=== PATIENT | male | born 1965 | race Two or more races ===

== ENCOUNTER 2016-12-13 12:32 | Emergency (ER) | payer MEDICAID ==
[~2016-12-13] VITALS: Ht 182.9 cm; Wt 93.0 kg
[2016-12-13 13:29] LABS: BASOPHILS # (AUTO) 0.1 /CMM (0.0-0.2); DIFF TOTAL % 100 %; EOSINOPHILS # (AUTO) 0.1 /CMM (0.0-0.7); EOSINOPHILS % (AUTO) 1.1 % (0.0-6.0); HEMATOCRIT 48 % (39-51); HEMOGLOBIN 16.5 g/dL (13.5-17.5); LYMPHOCYTES # (AUTO) 1.5 /CMM (0.8-4.8); LYMPHOCYTES % (AUTO) 20.7 % (20.0-44.0); MEAN CORPUSCULAR HEMOGLOBIN 32 PG (26.0-33.0); MEAN CORPUSCULAR HGB CONC 35 g/dl (31.0-36.0); MEAN CORPUSCULAR VOLUME 92 fL (80-96); MONOCYTES # (AUTO) 0.8 /CMM (0.1-1.30); MONOCYTES % (AUTO) 11.5 % (2.0-12.0); NEUTROPHILS # (AUTO) 4.8 /CMM (1.8-8.9); NEUTROPHILS % (AUTO) 65.7 % (43.0-81.0); PLATELET COUNT (AUTO) 150 /CMM (150-450); RED BLOOD CELL COUNT(AUTO) 5.17 MIL/uL (4.5-6.0); WHITE BLOOD COUNT (AUTO) 7.3 K/uL (4.3-11.0)
[2016-12-13] MEDS ORDERED: CLONIDINE HCL 0.1 MG TABLET PO ONE (13:30)
[2016-12-13] MEDS ORDERED: DIAZEPAM 10 MG TABLET PO ONE (13:30)
[2016-12-13] MEDS ORDERED: CLONIDINE HCL 0.1 MG TABLET ONE (13:31)
[2016-12-13] MEDS ORDERED: DIAZEPAM 10 MG TABLET ONE (13:32)
[2016-12-13 13:38] LABS: CALCIUM, SERUM 8.2 mg/dL (8.5-10.1); POTASSIUM 3.6 mmol/L (3.5-5.1)
[2016-12-13 13:43] LABS: INR 1.1 (0.87-1.13); PROTHROMBIN TIME 11.5 SECS (9.5-12.7)
[2016-12-13 13:44] LABS: ALBUMIN 3.6 g/dL (3.4-5.0); BILIRUBIN,DIRECT 0.3 mg/dL (0.0-0.2); INDIRECT BILIRUBIN 0.7 mg/dL (0.0-1.1); TOTAL PROTEIN, SERUM 7.5 g/dL (6.4-8.2)
[2016-12-13 15:04] VITALS: BP 155/99
== END 2016-12-13 15:07 | disposition home or self-care (01) ==
LOC: ER 12:34
DX: F10.239 Alcohol dependence with withdrawal, unspecified (principal); F41.9 Anxiety disorder, unspecified; K74.60 Unspecified cirrhosis of liver; R74.0 Nonspecific elevation of levels of transaminase and lactic acid dehydrogenase [LDH]; R03.0 Elevated blood-pressure reading, without diagnosis of hypertension; Z86.19 Personal history of other infectious and parasitic diseases; Z87.898 Personal history of other specified conditions
CPT/HCPCS: 36415; 80048-TC; 80076-TC; 85025-TC; 85730-TC; A4606; Z7610

== ENCOUNTER 2018-03-20 11:02 | Emergency (ER) | payer MEDICAID, OTHER ==
[~2018-03-20] VITALS: Ht 180.3 cm; Wt 90.7 kg
--- NOTE | 2018-03-20 11:10 | NUR ---
RUQ PAIN, MOSTLY AFTER INGESTION x 3 WEEKS, NAD NOTED, VSS, RESP EVEN AND UNLABORED, PT WAS PUT ON MONITOR, WAITING FOR MD BISHOP
[2018-03-20] MEDS ORDERED: KETOROLAC TROMETHAMINE INJ 30 MG/ML VIAL ONE (11:27)
[2018-03-20] MEDS ORDERED: ONDANSETRON HCL/PF 4 MG/2 ML VIAL ONE (11:27)
[2018-03-20] MEDS ORDERED: IV NS 0.9% 500 ML BAG IV ONE (11:30)
[2018-03-20] MEDS ORDERED: ONDANSETRON HCL/PF 4 MG/2 ML VIAL IVP ONE (11:30)
[2018-03-20] MEDS ORDERED: KETOROLAC TROMETHAMINE INJ 30 MG/ML VIAL IV ONE (11:30)
[2018-03-20 11:38] LABS: BASOPHILS # (AUTO) 0.1 /CMM (0.0-0.2); EOSINOPHILS % (AUTO) 4.3 % (0.0-6.0); HEMATOCRIT 49 % (39-51); HEMOGLOBIN 17.4 g/dL (13.5-17.5); LYMPHOCYTES # (AUTO) 2.6 /CMM (0.8-4.8); LYMPHOCYTES % (AUTO) 34.6 % (20.0-44.0); MEAN CORPUSCULAR HGB CONC 35 g/dl (31.0-36.0); MEAN CORPUSCULAR VOLUME 88 fL (80-96); MONOCYTES # (AUTO) 0.6 /CMM (0.1-1.30); MONOCYTES % (AUTO) 7.8 % (2.0-12.0); NEUTROPHILS % (AUTO) 52.3 % (43.0-81.0); PLATELET COUNT (AUTO) 127 /CMM (150-450); RDW COEFFICIENT OF VARIATION 11.8 (11.5-15.0); RED BLOOD CELL COUNT(AUTO) 5.61 MIL/uL (4.5-6.0); WHITE BLOOD COUNT (AUTO) 7.6 K/uL (4.3-11.0)
[2018-03-20 11:50] LABS: INR 1.01 (0.85-1.15)
[2018-03-20 11:52] LABS: CALCIUM, SERUM 9.3 mg/dL (8.5-10.1); CREATININE 0.9 mg/dL (0.6-1.3); POTASSIUM 4.3 mmol/L (3.5-5.1)
[2018-03-20 11:57] LABS: ALBUMIN 3.7 g/dL (3.4-5.0); BILIRUBIN,DIRECT 0.1 mg/dL (0.0-0.2); BILIRUBIN,TOTAL 0.7 mg/dL (0.2-1.0); TOTAL PROTEIN, SERUM 7.6 g/dL (6.4-8.2)
[2018-03-20 12:38] LABS: APPEARANCE,URINE Clear (CLEAR); BILIRUBIN,URINE Negative (NEGATIVE); BLOOD, URINE Negative Ery/uL (NEGATIVE); COLOR,URINE Dark (YELLOW); KETONES,URINE Negative (NEGATIVE); LEUKOCYTE ESTERASE ,URINE Negative (NEGATIVE); NITRITE, URINE Negative (NEGATIVE); PH,URINE 5.5 (5.0-8.0); PROTEIN,URINE Negative (NEGATIVE); UGLUCOSE Negative (NEGATIVE); UROBILINOGEN,URINE 0.2 EU/dL (0.2)
--- NOTE | 2018-03-20 14:54 | NUR ---
Patient discharged to home in stable condition. Written and verbal after care instructions given. Patient verbalizes understanding of instruction.IV removed. Catheter intact and site benign. Pressure and 4x4 applied to site. No bleeding noted.
[2018-03-20 14:57] VITALS: BP 138/90
== END 2018-03-20 14:58 | disposition home or self-care (01) ==
LOC: ER 11:03
DX: R10.11 Right upper quadrant pain (principal); K74.60 Unspecified cirrhosis of liver; I10 Essential (primary) hypertension; Z86.19 Personal history of other infectious and parasitic diseases; Z87.442 Personal history of urinary calculi
CPT/HCPCS: 36415; 80048-TC; 80076-TC; 81000-TC; 83690-TC; 85025-TC; 85730-TC; A4606; J1885; J2405; J7040; Z7610

== ENCOUNTER 2019-11-14 11:35 | Inpatient (IN) | payer OTHER ==
[~2019-11-14] VITALS: Ht 182.9 cm; Wt 97.1 kg
--- NOTE | 2019-11-14 11:39 | NUR ---
CAME IN FOR SOB X 4 HOURS. "I CANT STOP DRINKING ALCOHOL." , PER PATIENT, DRANK 2 SHOTS OF VODKA AT 0900. TO ER BED 4, HOOKED TO MONITOR, CHANGED TO HOSP GOWN, WARM BLAKET PROVIDED, PATIENT AOx4 , BREATHING EVEN AND UNLABORED. DR BARTH AT BEDSIDE
--- NOTE | 2019-11-14 11:43 | NUR ---
PATIENT NOTED A-FIB ON TRAINING DEVELOPER AT 152BPM
--- NOTE | 2019-11-14 12:09 | NUR ---
staging technician at bedside
[2019-11-14] MEDS ORDERED: DILTIAZEM HCL 25 MG IV ONE (12:15)
[2019-11-14 12:26] LABS: BASOPHILS % (AUTO) 0.5 % (0.0-2.0); EOSINOPHILS % (AUTO) 0.9 % (0.0-6.0); HEMATOCRIT 50 % (39-51); HEMOGLOBIN 16.7 g/dL (13.5-17.5); LYMPHOCYTES # (AUTO) 2.5 /CMM (0.8-4.8); LYMPHOCYTES % (AUTO) 25.5 % (20.0-44.0); MEAN CORPUSCULAR HGB CONC 34 g/dl (31.0-36.0); MEAN CORPUSCULAR VOLUME 90 fL (80-96); MONOCYTES # (AUTO) 0.8 /CMM (0.1-1.30); MONOCYTES % (AUTO) 7.8 % (2.0-12.0); NEUTROPHILS # (AUTO) 6.5 /CMM (1.8-8.9); NEUTROPHILS % (AUTO) 65.3 % (43.0-81.0); PLATELET COUNT (AUTO) 148 /CMM (150-450); RED BLOOD CELL COUNT(AUTO) 5.47 MIL/uL (4.5-6.0); WHITE BLOOD COUNT (AUTO) 9.9 K/uL (4.3-11.0)
[2019-11-14] MEDS ORDERED: LISI40TA4 PO (12:27)
[2019-11-14] MEDS ORDERED: DILTIAZEM HCL 25 MG IV IV ONE (12:30)
[2019-11-14 12:42] LABS: BILIRUBIN,DIRECT 0.2 mg/dL (0.0-0.2); BILIRUBIN,TOTAL 0.9 mg/dL (0.2-1.0); CREATININE 1.1 mg/dL (0.6-1.3); POTASSIUM 3.9 mmol/L (3.5-5.1); TOTAL PROTEIN, SERUM 7.6 g/dL (6.4-8.2)
[2019-11-14] MEDS ORDERED: Magnesium 1GM/D5W 100ML PREMIX 200 ML IV ONE (13:43)
[2019-11-14] MEDS ORDERED: Thiamine 100 MG/ML VIAL ONE (13:43)
[2019-11-14] MEDS ORDERED: Thiamine 100 MG in IV D5W 50 ML IV SCH (14:00)
[2019-11-14] MEDS ORDERED: Magnesium 1 GM/2 ML VIAL IV ONE (14:00)
[2019-11-14] MEDS ORDERED: AMIODARONE 150 MG/3 ML VIAL IV ONE ×2 (14:00→14:06)
[2019-11-14] MEDS ORDERED: IV NS 0.9% 1,000 ML IV ONE (14:00)
[2019-11-14] MEDS ORDERED: POTASSIUM CHLORIDE 20 MEQ TAB.PRT.SR PO ONE ×2 (14:00→14:06)
[2019-11-14] MEDS ORDERED: ASPIRIN 325 MG TABLET PO ONE (14:30)
[2019-11-14] MEDS ORDERED: AMIODARONE 150 MG in IV D5W 100 ML IV ONE (14:30)
[2019-11-14] MEDS ORDERED: AMIODARONE 900 MG in IV D5W 482 ML IV PRN (14:30)
[2019-11-14] MEDS ORDERED: IV NS 0.9% 1,000 ML IV PRN (15:22)
[2019-11-14] MEDS ORDERED: MAG HYDROX/AL HYDROX/SIMETH 30 ML UDC PO PRN (15:30)
[2019-11-14] MEDS ORDERED: ACETAMINOPHEN 325 MG TABLET PO PRN (15:30)
[2019-11-14] MEDS ORDERED: ONDANSETRON HCL/PF 4 MG/2 ML VIAL IVP PRN (15:30)
[2019-11-14] MEDS ORDERED: HYDROCODONE/APAP 5/325MG 1 EACH TABLET PO PRN (15:30)
[2019-11-14] MEDS ORDERED: MAGNESIUM HYDROXIDE 30 ML UDC PO PRN (15:30)
[2019-11-14] MEDS ORDERED: Z GUARD REMEDY 2 OZ OINT TP PRN (15:30)
[2019-11-14 16:00] VITALS: BP 163/115
--- NOTE | 2019-11-14 16:05 | NUR ---
GOT BED 101
--- NOTE | 2019-11-14 16:20 | NUR ---
REPORT GIVEN TO SOON RN OF [facility]
[2019-11-14] MEDS ORDERED: LORAZEPAM INJ 2 MG/ML VIAL ONE (16:26)
[2019-11-14] MEDS ORDERED: LORAZEPAM INJ 2 MG/ML VIAL IV ONE (16:30)
[2019-11-14 16:45] VITALS: BP 163/115
--- NOTE | 2019-11-14 16:45 | NUR ---
[facility] RN NOTES ADMITTED PATIENT FROM ER, DX A FIB WITH RVR, AO X 3, ABLE TO AMBULATE TO BED, ON ROOM AIR, NO SOB, NO DISTRESS, RESPIRATION UNLABORED, AFIB UNCONTROLLED HR 143 ON TELE MONITOR, DENIES CHEST PAIN OR DISCOMFORT, RT AC G 20 WITH AMIODARONE DRIP AT 1 MG/MIN ONGOING, SITE CLEAR. NO SKIN ISSUES. REGULAR DIET. UNIT ORIENTATION AND USE OF CALL LIGHT DONE VERBALIZED UNDERSTANDING. BED LOW LOCKED, INSTRUCTED TO CALL FOR ASSIST WHEN STANDING UP. WILL CONTINUE TO MONITOR.
[2019-11-14] MEDS ORDERED: ASPIRIN 325 MG TABLET ONE (17:08)
--- NOTE | 2019-11-14 17:12 | NUR ---
VERIFIED FROM DR NASH IF CORDARONE 900MG IN IV D5W 500ML 482ML AND CORDARONE 150MG IN IV D5W 100ML ARE DUPLICATE ORDERS. CANCELLED IN eMAR
[2019-11-14] MEDS: AMIODARONE 900 MG in IV D5W 482 ML IV PRN ×2 (17:21→18:14)
[2019-11-14] MEDS: IV 1/2NS 1000 ML 1,000 ML IV PRN (17:25)
--- NOTE | 2019-11-14 17:25 | NUR ---
[facility] RN NOTES BP 163/115. NOTIFIED DR. GUERRA EARLIER. HYDRALAZINE 25 MG ORAL GIVEN. THEN EVERY 8 HOURS PRN FOR SBP >160
[2019-11-14] MEDS ORDERED: hydrALAZINE HCL 25 MG TABLET PO PRN (17:30)
[2019-11-14 18:00] VITALS: BP 147/86
--- NOTE | 2019-11-14 18:00 | NUR ---
RN NOTES BP RECHECKED 147/86
[2019-11-14] MEDS: RIVAROXABAN 10 MG TABLET PO SCH (18:17)
[2019-11-14] MEDS ORDERED: Folic acid 1 MG in IV D5W 50 ML IV SCH (18:30)
--- NOTE | 2019-11-14 18:56 | NUR ---
RN NOTES ALL NEEDS MET AT THIS TIME. PATIENT RESTING. MD AWARE OF HIGH HEART RATE. XARELTO GIVEN EARLIER. FOLIC ACID IV NOT AVAILABLE OF THIS TIME. PER PHARMACY WILL BRING. WILL ENDORSE TO NEXT SHIFT FOR CARLA
--- NOTE | 2019-11-14 19:15 | NUR ---
[facility] RN NOTE RECEIVED PATIENT IN BED RESTING WITH HOB ELEVATED. WATCHING TV. A&O X4. BREATHING EVEN AND NON LABORED. NO SOB NOTED AT THIS TIME. IN NO APPARENT DISTRESS. ON IV AMIODARONE AND HYDRATION. CALL LIGHT IS WITHIN EASY REACH. WILL CONTINUE TO MONITOR.
[2019-11-14 20:00] VITALS: BP 152/91
[2019-11-14] MEDS: METOPROLOL TARTRATE 25 MG TABLET PO SCH (20:18)
[2019-11-14] MEDS: ZOLPIDEM TARTRATE 5 MG TABLET PO PRN (21:30)
--- NOTE | 2019-11-14 23:30 | NUR ---
[facility] RN NOTE PATIENT COMPLAINED OF ANXIETY AND SOB. DR. SAMS MADE AWARE OF PATIENT STATUS. RECEIVED NEW ORDER FOR ATIVAN 0.5 MG IV Q8H PRN. ORDERS NOTED AND CARRIED OUT. WILL CONTINUE TO MONITOR.
[2019-11-14] MEDS: LORAZEPAM INJ 2 MG/ML VIAL IV PRN (23:32)
[2019-11-15] VITALS (7 sets, daily range): BP systolic 105–153; BP diastolic 57–108
--- NOTE | 2019-11-15 00:15 | NUR ---
[facility] RN NOTE PATIENT STILL COMPLAINED OF DIFFICULTY BREATHING. CRACKLES HEARD UPON LUNG AUSCULTATION. O2 SAT IS 100% ON 2L 02 VIA NC. RESPIRATION IS [address] SAMS OF PATIENT'S COMPLAIN. RECEIVED NEW ORDERS FOR MORPHINE 2 MG IV Q4H PRN AND XOPENEX 0.63 MG NEB Q6H PRN. ORDERS NOTED AT CARRIED OUT.
[2019-11-15] MEDS: MORPHINE SULFATE INJ 2 MG/ML DISP.SYRIN IV PRN ×2 (00:24→13:50)
[2019-11-15] MEDS ORDERED: LEVALBUTEROL HCL NEB 1.25 MG/0.5 ML VIAL.NEB NEB PRN (00:30)
[2019-11-15] MEDS: IV 1/2NS 1000 ML 1,000 ML IV PRN (02:27)
--- NOTE | 2019-11-15 06:47 | NUR ---
RN [facility] CLOSING NOTE PATIENT IS IN BED RESTING WITH HOB ELEVATED AT THIS TIME. A&O X4. ABLE TO MAKE NEEDS KNOWN. IN NO APPARENT DISTRESS NOTED AT THIS TIME. MOTIVATED TO SELF CARE. PATIENT IS KEPT CLEAN, DRY, AND COMFORTABLE. DUE MEDS GIVEN AND TOLERATED WELL. ON AMIODARONE DRIP IV. CALL LIGHT IS WITHIN EASY REACH. WILL ENDORSE TO AM SHIFT RN.
[2019-11-15 06:56] LABS: BASOPHILS % (AUTO) 0.4 % (0.0-2.0); EOSINOPHILS % (AUTO) 1.7 % (0.0-6.0); HEMATOCRIT 49 % (39-51); HEMOGLOBIN 16.8 g/dL (13.5-17.5); LYMPHOCYTES # (AUTO) 2.1 /CMM (0.8-4.8); LYMPHOCYTES % (AUTO) 23.1 % (20.0-44.0); MEAN CORPUSCULAR HGB CONC 34 g/dl (31.0-36.0); MEAN CORPUSCULAR VOLUME 90 fL (80-96); MONOCYTES # (AUTO) 0.9 /CMM (0.1-1.30); MONOCYTES % (AUTO) 9.8 % (2.0-12.0); NEUTROPHILS # (AUTO) 5.8 /CMM (1.8-8.9); PLATELET COUNT (AUTO) 129 /CMM (150-450); RED BLOOD CELL COUNT(AUTO) 5.43 MIL/uL (4.5-6.0); WHITE BLOOD COUNT (AUTO) 8.9 K/uL (4.3-11.0)
--- NOTE | 2019-11-15 07:13 | NUR ---
[facility] RN OPENING NOTES RECEIVED PATIENT SITTING IN BED IN NO ACUTE SIGNS OF DISTRESS. A/O X4. ABLE TO MAKE NEEDS KNOWN, DENIES PAIN OR ANY DISCOMFORTS AT THIS TIME. ON ROOM AIR, BREATHING EVEN AND UNLABORED. TELEMONITORING SHOWS AFIB UNCONTROLLED WITH HR OF 100-109 NOTED, NO C/O CARDIAC DISTRESS VOICED AT THIS TIME. IV ACCESS ON RAC G#20 INTACT AND PATENT, IV AMIODARONE AND IVF OF 1/2 NS INFUSING ORDERED. BED IN LOWEST LOCKED POSITION WITH SR UP X2. CALL LIGHT IS WITHIN EASY REACH. WILL CONTINUE TO MONITOR.
[2019-11-15 07:37] LABS: ALANINE AMINOTRANSFERASE 71 U/L (12-78); ALBUMIN 3.5 g/dL (3.4-5.0); ALKALINE PHOSPHATASE 67 U/L (46-116); ASPARTATE AMINOTRANSFERASE 39 U/L (15-37); BILIRUBIN,TOTAL 1.7 mg/dL (0.2-1.0); CALCIUM, SERUM 8.7 mg/dL (8.5-10.1); CARBON DIOXIDE 27 mmol/L (21-32); CHLORIDE 102 mmol/L (98-107); CHOLESTEROL 201 mg/dL (<200); CREATININE 0.9 mg/dL (0.6-1.3); GLUCOSE 100 mg/dL (74-106); HDL CHOLESTEROL 65 mg/dL (40-60); LDL 124 mg/dL (0-99); MAGNESIUM 1.9 mg/dL (1.8-2.4); POTASSIUM 3.8 mmol/L (3.5-5.1); SODIUM SERUM 137 mmol/L (136-145); THYROID STIMULATING HORMONE < 0.007 uIU/mL (0.358-3.74); TRIGLYCERIDES 75 mg/dL (30-150); UREA NITROGEN, BLOOD 12 mg/dL (7-18)
[2019-11-15] MEDS: METOPROLOL TARTRATE 25 MG TABLET PO SCH ×5 (08:09→23:36)
--- NOTE | 2019-11-15 08:33 | NUR ---
RN NOTES PT SEEN AND EVALUATED BY DR FERGUSON. IVF OF 1/2 NS AND AMIODARONE IV D/C'D. PT DOWNGRADED TO TELE. FOR EKG AND ECHO TODAY AND BLOOD WORKS TOMORROW MORNING. WILL CONTINUE TO MONITOR P ACCORDINGLY.
--- NOTE | 2019-11-15 09:18 | NUR ---
ONLY HALF DOSE OF METOPROLOL WAS GIVEN D/T MD CHANGING DOSE AND 25MG ALREADY BEING ADMINISTERED. 25MG GIVEN TO FOLLOW MD ORDER FOR A TOTAL OF 50MG OF METOPROLOL FOR 0900.
[2019-11-15] MEDS: LORAZEPAM INJ 2 MG/ML VIAL IV PRN (09:28)
--- NOTE | 2019-11-15 09:29 | NUR ---
RN NOTES PT NOTED ANXIOUS, PRN ATIVAN 0.5MG/0.25ML ADMINISTERED IVP AT 0928. WILL CONTINUE TO MONITOR
--- NOTE | 2019-11-15 10:26 | NUR ---
INFORMED DR STILL REGARDING RESULTS FOR EKG AND ECHO. AWARE. NNO AT THIS TIME.
[2019-11-15] MEDS: CHLORDIAZEPOXIDE HCL 25 MG CAPSULE PO PRN ×2 (12:20→20:45)
--- NOTE | 2019-11-15 12:24 | NUR ---
dangling, signif other with him, alert, oriented, appropriate. did not offer any complaint of discomfort, no withdrawal signed noted. LIBRIUM 25mg po initiated
[2019-11-15] MEDS: THIAMINE HCL 100 MG TABLET PO SCH (13:49)
[2019-11-15] MEDS: FOLIC ACID 1 MG TABLET PO SCH (13:49)
--- NOTE | 2019-11-15 14:12 | NUR ---
complained of " heart discomfort, bp at this time 155/108, hr 92, afib. mso4 , 2mg ivp given per patient's request
[2019-11-15] MEDS ORDERED: Folic acid 1 MG in IV D5W 50 ML IV SCH (15:00)
[2019-11-15] MEDS ORDERED: Thiamine 100 MG in IV D5W 50 ML IV SCH (15:00)
[2019-11-15] MEDS: RIVAROXABAN 10 MG TABLET PO SCH (16:46)
--- NOTE | 2019-11-15 19:20 | NUR ---
TELE/RN OPENING NOTES: RECEIVED PATIENT IN BED, SITTING UP, NO SOB NOTED, NO S/S OF ACUTE DISTRESS, NO COMPLAINS OF PAIN/DISCOMFORT AT THIS TIME. A/O X4. FAMILY AT BEDSIDE. ABLE TO MAKE NEEDS KNOWN, ON ROOM AIR, BREATHING EVEN AND UNLABORED. ON TELEMONITORING WITH READING OF A-FIB UNCONTROLLED WITH HR OF 110S NOTED, NO C/O CARDIAC DISTRESS VOICED AT THIS TIME. IV ACCESS ON RAC G#20 INTACT AND PATENT. BED IN LOWEST LOCKED POSITION WITH SR UP X2. CALL LIGHT IS WITHIN EASY REACH. WILL CONTINUE TO MONITOR.
--- NOTE | 2019-11-15 20:47 | NUR ---
TELE/RN NOTES: PATIENT IS HAVING ANXIETY AT THIS TIME. BP:129/95. HR:112. SATURATING WELL ON ROOM AIR. ADMINISTERED 25MG OF LIBRIUM PO. TOLERATED WELL. WILL CONTINUE TO MONITOR ACCORDINGLY.
[2019-11-16] VITALS: BP 109/62
--- NOTE | 2019-11-16 | NUR ---
TELE/RN NOTES: PATIENT BLOOD PRESSURE 109/62. HR 105. HELD LOPRESSOR 50 MG 2 TAB PO TO PREVENT BP FROM DECREASING. PATIENT IS STABLE. NO CHEST PAIN REPORTED. NO COMPLAINS OF PAIN, NO SOB OR ACUTE DISTRESS NOTED. WILL CONTINUE TO MONITOR.
[2019-11-16 04:00] VITALS: BP 125/97
[2019-11-16 05:43] LABS: BASOPHILS # (AUTO) 0.1 /CMM (0.0-0.2); BASOPHILS % (AUTO) 0.7 % (0.0-2.0); HEMATOCRIT 48 % (39-51); HEMOGLOBIN 16.3 g/dL (13.5-17.5); LYMPHOCYTES % (AUTO) 27.4 % (20.0-44.0); MEAN CORPUSCULAR HGB CONC 34 g/dl (31.0-36.0); MEAN CORPUSCULAR VOLUME 90 fL (80-96); MONOCYTES # (AUTO) 0.6 /CMM (0.1-1.30); MONOCYTES % (AUTO) 8.5 % (2.0-12.0); NEUTROPHILS # (AUTO) 4.4 /CMM (1.8-8.9); NEUTROPHILS % (AUTO) 60.4 % (43.0-81.0); PLATELET COUNT (AUTO) 109 /CMM (150-450); RED BLOOD CELL COUNT(AUTO) 5.28 MIL/uL (4.5-6.0); WHITE BLOOD COUNT (AUTO) 7.3 K/uL (4.3-11.0)
[2019-11-16] MEDS: METOPROLOL TARTRATE 25 MG TABLET PO SCH ×3 (05:53→17:10)
[2019-11-16 06:23] LABS: ALBUMIN 3.2 g/dL (3.4-5.0); BILIRUBIN,TOTAL 1.9 mg/dL (0.2-1.0); CALCIUM, SERUM 8.9 mg/dL (8.5-10.1); MAGNESIUM 1.8 mg/dL (1.8-2.4); PHOSPHORUS 2.9 mg/dL (2.5-4.9); POTASSIUM 3.9 mmol/L (3.5-5.1); TOTAL PROTEIN, SERUM 6.7 g/dL (6.4-8.2)
--- NOTE | 2019-11-16 06:24 | NUR ---
TELE/RN CLOSING NOTES: PATIENT SLEEPING IN BED, NO SOB NOTED, NO S/S OF ACUTE DISTRESS, NO COMPLAINS OF PAIN/DISCOMFORT AT THIS TIME. REMAINS A/O X4. FAMILY MEMBER AT BEDSIDE. ABLE TO MAKE NEEDS KNOWN, ON ROOM AIR, BREATHING EVEN AND UNLABORED. ON TELEMONITORING WITH READING OF A-FIB UNCONTROLLED WITH HR OF 100S, IV ACCESS ON RAC G#20 INTACT AND PATENT. BED IN LOWEST LOCKED POSITION WITH SR UP X2. CALL LIGHT IS WITHIN EASY REACH. WILL ENDORSE TO DAYSHIFT RN FOR CARLA.
[2019-11-16] MEDS ORDERED: ALBUTEROL FS 2.5 MG/3 ML VIAL.NEB NEB PRN (07:30)
--- NOTE | 2019-11-16 07:51 | NUR ---
LOADER OPERATOR/GROUND LEADER NOTES PATIENT IN BED AWAKE, A/OX 4 , AT BED SIDE. DENIES ANY PAIN, NO SOB OR DISCOMFORT NOTED AT THIS TIME. CALL LIGHT WITHIN REACH, BED AT THE LOWEST POSITION LOCKED, WILL CONTINUE TO MONITOR PATIENT.
[2019-11-16 08:00] VITALS: BP 130/91
[2019-11-16] MEDS: THIAMINE HCL 100 MG TABLET PO SCH (08:32)
[2019-11-16] MEDS: FOLIC ACID 1 MG TABLET PO SCH (08:32)
[2019-11-16 12:00] VITALS: BP 121/85
[2019-11-16] MEDS: DILTIAZEM HCL CD 240 MG PO SCH (12:39)
[2019-11-16] MEDS: METHIMAZOLE (5MG) 5 MG TABLET PO SCH (13:35)
[2019-11-16 16:00] VITALS: BP 121/86
[2019-11-16] MEDS: RIVAROXABAN 10 MG TABLET PO SCH (17:06)
--- NOTE | 2019-11-16 19:05 | NUR ---
AIR OPERATIONS MANAGER NOTES PATIENT IN BED A/OX 4 SITTING ON CHAIR. NO SOB OR DISCOMFORT NOTED AT THIS TIME. IV SITE PATENT. PATIENT IS DISCHARGED, BUT PER DR BROWN PATIENT WILL REMAIN AT HOSPITAL UNTIL HE RECEIVES HI WAIST LIFE JACKET. LORELEI RAILROAD WATCHMAN AWARE. ALL NEEDS ATTENDED, MEDICATIONS ADMINISTRATED, CALL LIGHT WITHIN REACH, BED AT THE LOWEST POSITION LOCKED, ENDORSED TO MOTORCYCLE RACER NURSE FOR CARLA.
[2019-11-16] MEDS: MORPHINE SULFATE INJ 2 MG/ML DISP.SYRIN IV PRN (19:48)
--- NOTE | 2019-11-16 19:54 | NUR ---
VENETIAN BLIND CLEANER AND REPAIRER OPENING NOTES: RECEIVED PT AWAKE IN SITTING UP IN CHAIR NEXT TO BED. PT ON 2L/MIN NC SATING WELL AT 95%. A&OX4 AND AMBULATORY. ON TELE MONITOR SHOWING A-FIB. NO ACUTE RESPIRATORY DISTRESS NOTED AT THIS TIME. LUNG SOUNDS CLEAR THROUGHOUT. HAS IV ON RIGHT AC #20, FLUSHED, PATENT AND CLEAN. PT STATED HE HAS GENERALIZED PAIN 8/10. ADMINISTERED IV MORPHINE PRESCRIBED. PT AWAITING LIFE WAIST PRIOR TO DC. SAFETY MEASURES IN PLACE. CALL LIGHT WITHIN REACH. WILL CONTINUE TO MONITOR.
[2019-11-16 20:00] VITALS: BP 117/71
[2019-11-16] MEDS: ZOLPIDEM TARTRATE 5 MG TABLET PO PRN (21:58)
[2019-11-17] VITALS: BP 110/67
[2019-11-17 04:00] VITALS: BP_SYST 118; BP_SYST 133; BP_DIAS 75; BP_DIAS 79
[2019-11-17] MEDS: METOPROLOL TARTRATE 25 MG TABLET PO SCH ×4 (05:48→17:24)
--- NOTE | 2019-11-17 06:41 | NUR ---
ASSISTANT SIGNAL MAINTAINER CLOSING NOTES: PT SLEEPING IN BED, NO SOB OR ACUTE DISTRESS NOTED. ON 2L/MIN NC FOR SUPPLEMENTAL O2 BREATHING EVEN AND UNLABORED. NO COMPLAINTS OF PAIN/DISCOMFORT. PT REMAINS A&OX4. ABLE TO MAKE NEEDS KNOWN. ON TELE MONITOR SHOWING A-FIB. HAS IV SITE ON RIGHT AC #20, FLUSHED, PATENT AND INTACT. BED IN LOWEST POSITION, LOCKED WITH SIDE RAILS X2 UP AND CALL LIGHT WITHIN REACH. WILL ENDORSE TO DAYSHIFT RN FOR CARLA.
--- NOTE | 2019-11-17 07:10 | NUR ---
RN OPENING NOTES PT IS ASLEEP CURRENTLY IN BED. BED IS LOCKED AND IN LOWEST POSITION WITH CALL LIGHT IN REACH. PT IS ON TELE MONITOR CURRENTLY A-FIB HR 96. REPORT RECEIVED FROM ENTRY LEVEL SALES REPRESENTATIVE RN. WILL CONTINUE TO MONITOR.
[2019-11-17 08:00] VITALS: BP 124/71
[2019-11-17] MEDS: DILTIAZEM HCL CD 240 MG PO SCH (09:30)
[2019-11-17] MEDS: THIAMINE HCL 100 MG TABLET PO SCH (09:30)
[2019-11-17] MEDS: FOLIC ACID 1 MG TABLET PO SCH (09:30)
[2019-11-17] MEDS: METHIMAZOLE (5MG) 5 MG TABLET PO SCH (09:30)
[2019-11-17 12:00] VITALS: BP 126/82
[2019-11-17 16:00] VITALS: BP 119/71
[2019-11-17] MEDS ORDERED: RIVA10TA PO (17:05)
[2019-11-17] MEDS ORDERED: METO25TA20 PO (17:05)
[2019-11-17] MEDS ORDERED: METH5TAB70 PO (17:05)
[2019-11-17] MEDS ORDERED: DILT240C88 PO (17:05)
[2019-11-17] MEDS: RIVAROXABAN 10 MG TABLET PO SCH (17:23)
[2019-11-17 17:24] VITALS: BP 119/71
--- NOTE | 2019-11-17 18:45 | NUR ---
ALFRED BEAULIEU DELIVERED AND YVONNE HAT BRUSHER MACHINE GOING OVER PT EDUCATION WITH PT.
--- NOTE | 2019-11-17 19:32 | NUR ---
RN CLOSING NOTES PT EXITCARE GIVEN TO PT. PT APPOINTMENT TIME GIVEN TO PT WITH EDUCATION MATERIAL. PT VERBALIZED UNDERSTANDING. IV REMOVED FROM AC. BELONGINGS LIST SIGNED. LIFEVEST IS ON THE PATIENT. PT LEFT IN PRIVATE CAR WITH .
--- NOTE | 2019-11-17 19:41 | NUR ---
RN D/C NOTES PT EXITCARE GIVEN TO PT. PT APPOINTMENT TIME GIVEN TO PT WITH EDUCATION MATERIAL. PT VERBALIZED UNDERSTANDING. IV REMOVED FROM AC. BELONGINGS LIST SIGNED.PT GOT DRESSED IN HIS CLOTHES AND TELEMETRY BOX REMOVED. LIFEVEST IS ON THE PATIENT. PT LEFT IN PRIVATE CAR WITH .
== END 2019-11-17 19:51 | disposition home or self-care (01) | DRG 194 ==
LOC: ER 11:37 → TELE-TD 16:27 → TELE1 11-15 09:41
PROVIDERS: ADMIT Internal Medicine; ATTEND Hospitalist
DX: I11.0 Hypertensive heart disease with heart failure (principal); I21.A1 Myocardial infarction type 2; D68.59 Other primary thrombophilia; F10.229 Alcohol dependence with intoxication, unspecified; I50.21 Acute systolic (congestive) heart failure; I48.91 Unspecified atrial fibrillation; I42.9 Cardiomyopathy, unspecified; T51.0X1A Toxic effect of ethanol, accidental (unintentional), initial encounter; Y90.6 Blood alcohol level of 120-199 mg/100 ml; K70.30 Alcoholic cirrhosis of liver without ascites; Z86.19 Personal history of other infectious and parasitic diseases; E66.9 Obesity, unspecified; Z68.27 Body mass index [BMI] 27.0-27.9, adult; E05.90 Thyrotoxicosis, unspecified without thyrotoxic crisis or storm; Z91.14 Patient's other noncompliance with medication regimen; I34.0 Nonrheumatic mitral (valve) insufficiency; Z87.891 Personal history of nicotine dependence; I25.2 Old myocardial infarction
CPT/HCPCS: 36415; 71045-TC; 80048-TC; 80053-TC; 80061-TC; 80076-TC; 80305; 83735-TC; 83880; 84100-TC; 84439-TC; 84443-TC; 84484-TC; 85025-TC; 85730-TC; 87081-TC; 93307-TC; G0378; G0480; J0282; J2060; J2270; J3411; J3475; J3490; J7030; J7060

== ENCOUNTER 2020-02-18 10:34 | Inpatient (IN) | payer OTHER ==
[~2020-02-18] VITALS: Ht 218.4 cm; Wt 90.7 kg
[2020-02-18] VITALS: BP 166/112
[~2020-02-18 10:34] MED LIST: DILT240C88 PO; METH5TAB70 PO; METO25TA20 PO; RIVA10TA PO
--- NOTE | 2020-02-18 11:03 | NUR ---
DR REDDY AT BEDSIDE FOR EVAL.
[2020-02-18] MEDS ORDERED: DILTIAZEM HCL 25 MG IV ONE (11:22)
[2020-02-18 11:24] LABS: BASOPHILS # (AUTO) 0.1 /CMM (0.0-0.2); BASOPHILS % (AUTO) 0.8 % (0.0-2.0); EOSINOPHILS % (AUTO) 0.7 % (0.0-6.0); HEMATOCRIT 51 % (39-51); HEMOGLOBIN 17.7 g/dL (13.5-17.5); LYMPHOCYTES # (AUTO) 2.6 /CMM (0.8-4.8); LYMPHOCYTES % (AUTO) 24.5 % (20.0-44.0); MEAN CORPUSCULAR HGB CONC 35 g/dl (31.0-36.0); MEAN CORPUSCULAR VOLUME 93 fL (80-96); MONOCYTES # (AUTO) 1.1 /CMM (0.1-1.30); MONOCYTES % (AUTO) 10.2 % (2.0-12.0); NEUTROPHILS # (AUTO) 6.6 /CMM (1.8-8.9); NEUTROPHILS % (AUTO) 63.8 % (43.0-81.0); PLATELET COUNT (AUTO) 189 /CMM (150-450); RED BLOOD CELL COUNT(AUTO) 5.54 MIL/uL (4.5-6.0); WHITE BLOOD COUNT (AUTO) 10.4 K/uL (4.3-11.0)
[2020-02-18] MEDS ORDERED: DILTIAZEM HCL 25 MG IV IV ONE (11:30)
[2020-02-18 11:36] LABS: CALCIUM, SERUM 8.5 mg/dL (8.5-10.1); CREATININE 1.2 mg/dL (0.6-1.3); POTASSIUM 3.6 mmol/L (3.5-5.1)
[2020-02-18 11:49] LABS: ALBUMIN 4.1 g/dL (3.4-5.0); BILIRUBIN,DIRECT 0.4 mg/dL (0.0-0.2); BILIRUBIN,TOTAL 1.3 mg/dL (0.2-1.0); TOTAL PROTEIN, SERUM 7.8 g/dL (6.4-8.2)
[2020-02-18] MEDS ORDERED: RIVA10TA PO (12:24)
[2020-02-18] MEDS ORDERED: DILT-3 PO (12:24)
[2020-02-18] MEDS ORDERED: METH5TAB6 PO (12:24)
[2020-02-18] MEDS ORDERED: LOSA25TA27 PO (12:24)
[2020-02-18] MEDS ORDERED: SPIR25TA6 PO (12:24)
--- NOTE | 2020-02-18 13:24 | NUR ---
ROOM ASSIGNMENT 112-2
[2020-02-18] MEDS ORDERED: DILTIAZEM HCL IV 125 MG in IV D5W 100 ML IV ONE (13:30)
[2020-02-18] MEDS ORDERED: FUROSEMIDE 20 MG/2 ML VIAL IV ONE (13:30)
--- NOTE | 2020-02-18 13:45 | NUR ---
PT STILL C/O SOB. DR REDDY AWARE.
[2020-02-18] MEDS ORDERED: FUROSEMIDE 20 MG/2 ML VIAL ONE (13:48)
--- NOTE | 2020-02-18 13:52 | NUR ---
LASIX 40MG IVP GIVEN PER ERMD ORDER. SEE EMAR.
--- NOTE | 2020-02-18 14:36 | NUR ---
REPORT GIVEN TO DOMINIQUE ANTONIO. .PT AWAITING TRANSFER TO FLOOR.
[2020-02-18] MEDS ORDERED: ACETAMINOPHEN 325 MG TABLET PO PRN (15:30)
[2020-02-18] MEDS ORDERED: Z GUARD REMEDY 2 OZ OINT TP PRN (15:30)
[2020-02-18] MEDS ORDERED: HYDROCODONE/APAP 5/325MG 1 EACH TABLET PO PRN (15:30)
[2020-02-18] MEDS ORDERED: ONDANSETRON HCL/PF 4 MG/2 ML VIAL IVP PRN (15:30)
[2020-02-18] MEDS ORDERED: MAGNESIUM HYDROXIDE 30 ML UDC PO PRN (15:30)
[2020-02-18] MEDS ORDERED: DILTIAZEM HCL IV 125 MG in IV NS 0.9% 100 ML IV PRN ×2 (15:30→17:00)
[2020-02-18] MEDS ORDERED: MAG HYDROX/AL HYDROX/SIMETH 30 ML UDC PO PRN (15:30)
[2020-02-18 16:00] VITALS: BP 130/94
--- NOTE | 2020-02-18 16:05 | NUR ---
CORRESPONDENCE ANALYST NOTES MICAELA TECHNICAL WRITING LEAD/MGR ECHO WAS AT BED SIDE. ECHO CANCELLED. CONTACTED DR ROLDAN AND NOTIFY THAT DR FERGUSON WANTS THE ECHO EVERY 6 MONTHS AND PT HAD ONE ON 11/15/2019. PER DR ROLDAN CANCEL ECHO.
--- NOTE | 2020-02-18 16:26 | NUR ---
HEADING MATCHER AND ASSEMBLER NOTES RECEIVED PATIENT FROM ER, A/OX4 UNDERSTANDS [place]ET[place]. ON ROOM AIR VITALS 98.3 HR 86 RR 18 O298% BP 130/94. ABLE TO AMBULATE BY HIMSELF. NO SOB OR DISCOMFORT NOTED AT THIS TIME. BELONGINGS CHECKED AND SIGNED WITH PATIENT. WILL CONTINUE TO MONITOR THE PATIENT.
--- NOTE | 2020-02-18 16:35 | NUR ---
RAILROAD DINING CAR STEWARDESS NOTES PER DR ROLDAN CHANGE THE CARDIZEM DOSE FROM 5 MG TO 8 MG. Addendum: 02/18/20 at 1640 by RICH IBANEZ RN NO TITRATION ON CARDIZEM.
[2020-02-18] MEDS ORDERED: RIVAROXABAN 10 MG TABLET PO SCH (17:00)
[2020-02-18 17:37] VITALS: BP 130/94
[2020-02-18 20:00] VITALS: BP 166/112
[2020-02-18] MEDS ORDERED: ZOLPIDEM TARTRATE 10 MG TABLET PO PRN (21:00)
[2020-02-19] VITALS: BP 143/89
[2020-02-19 04:00] VITALS: BP 140/78
--- NOTE | 2020-02-19 06:33 | NUR ---
SUPERVISOR ABATTOIR CLOSING NOTES: PATIENT IS RESTING IN BED, A/O X4. AMBULATORY. NO COMPLAIN OF PAIN. NOT IN RESPIRATORY DISTRESS. RESTED THROUGHOUT THE NIGHT. CALL LIGHT WITHIN REACH. BED IN LOWEST AND LOCKED POSITION. STILL ON CARDIZEM DRIP AT 8MG PER HOUR.
[2020-02-19 06:54] LABS: BASOPHILS # (AUTO) 0.1 /CMM (0.0-0.2); BASOPHILS % (AUTO) 0.8 % (0.0-2.0); EOSINOPHILS % (AUTO) 3.4 % (0.0-6.0); HEMATOCRIT 53 % (39-51); HEMOGLOBIN 18.4 g/dL (13.5-17.5); LYMPHOCYTES % (AUTO) 31.8 % (20.0-44.0); MEAN CORPUSCULAR HGB CONC 35 g/dl (31.0-36.0); MEAN CORPUSCULAR VOLUME 92 fL (80-96); MONOCYTES # (AUTO) 1.2 /CMM (0.1-1.30); MONOCYTES % (AUTO) 12.3 % (2.0-12.0); NEUTROPHILS # (AUTO) 4.9 /CMM (1.8-8.9); NEUTROPHILS % (AUTO) 51.7 % (43.0-81.0); PLATELET COUNT (AUTO) 159 /CMM (150-450); WHITE BLOOD COUNT (AUTO) 9.4 K/uL (4.3-11.0)
[2020-02-19 07:14] LABS: CALCIUM, SERUM 8.7 mg/dL (8.5-10.1); CREATININE 1.3 mg/dL (0.6-1.3); MAGNESIUM 1.8 mg/dL (1.8-2.4); PHOSPHORUS 3.5 mg/dL (2.5-4.9); POTASSIUM 3.5 mmol/L (3.5-5.1)
--- NOTE | 2020-02-19 07:30 | NUR ---
RN NOTE RECEIVED PATIENT FROM PM NURSE, PATIENT IS CURRENTLY RESTING IN BED COMFORTABLY AT THE MOMENT. A/O X4, AMBULATORY, ABLE TO MAKE NEEDS KNOWN. ON CARDIZEM DRIP, TOLERATING WELL, ON TELE MONITOR, CONTROLLED A FIB NOTED. PATIENT IS ON RA, BREATHING EVEN AND UNLABORED, SATURATING AT 99%, NO SOB OR ACUTE RESPIRATORY DISTRESS NOTED. PATIENT SAFETY MAINTAINED, CALL LIGHT WITHIN REACH, WILL CONTINUE TO MONITOR CLOSELY.
[2020-02-19 08:00] VITALS: BP 155/95
[2020-02-19] MEDS ORDERED: DILTIAZEM HCL CD 240 MG PO SCH ×2 (09:00→11:30)
[2020-02-19] MEDS ORDERED: METHIMAZOLE (5MG) 5 MG TABLET PO SCH (09:00)
[2020-02-19] MEDS ORDERED: LOSARTAN POTASSIUM 25 MG TABLET PO SCH (09:00)
[2020-02-19] MEDS ORDERED: FUROSEMIDE 20 MG/2 ML VIAL IV SCH (09:00)
[2020-02-19] MEDS ORDERED: SPIRONOLACTONE 25 MG TABLET PO SCH (09:00)
[2020-02-19 10:08] LABS: EOSINOPHILS % (MANUAL) 5 % (0-4); LYMPHOCYTES % (MANUAL) 35 % (16-48); MONOCYTES % (MANUAL) 20 % (0-11.0); NEUTROPHILS % (MANUAL) 40 (42-76)
[2020-02-19] MEDS ORDERED: VALSARTAN 80 MG TABLET PO SCH (11:30)
[2020-02-19 12:00] VITALS: BP 140/80
[2020-02-19 12:20] VITALS: BP 119/70
--- NOTE | 2020-02-19 13:43 | NUR ---
RN NOTE PATIENT DISCHARGED HOME, IN STABLE CONDITION. DISCHARGE INSTRUCTIONS PROVIDED TO THE PATIENT. VERBALIZED UNDERSTANDING. BELONGINGS SENT HOME WITH THE PATIENT, FORM SIGNED. PATIENT WALKED OUT OF THE UNIT, CALLED [facility]. SAFETY WAS MAINTAINED, ALL PATIENT NEEDS MET.
== END 2020-02-19 13:30 | disposition home or self-care (01) | DRG 201 ==
LOC: ER 10:38 → TELE1 14:55 → TELE-TD 16:34 → TELE1 20:42
PROVIDERS: ADMIT Internal Medicine; ATTEND Internal Medicine
DX: I48.91 Unspecified atrial fibrillation (principal); I50.23 Acute on chronic systolic (congestive) heart failure; I11.0 Hypertensive heart disease with heart failure; K74.60 Unspecified cirrhosis of liver; E05.90 Thyrotoxicosis, unspecified without thyrotoxic crisis or storm
CPT/HCPCS: 36415; 71045-TC; 80048-TC; 80076-TC; 83735-TC; 83880; 84100-TC; 84484-TC; 85025-TC; 85730-TC; 87081-TC; G0378; J1940; J3490; J7030; J7060

== ENCOUNTER 2020-10-03 13:16 | Emergency (ER) | payer OTHER ==
[~2020-10-03] VITALS: Ht 182.9 cm; Wt 90.7 kg
[~2020-10-03 13:16] MED LIST changes: +DILT-3 PO; -DILT240C88 PO; +LOSA25TA27 PO; +METH5TAB6 PO; -METH5TAB70 PO; -METO25TA20 PO; +SPIR25TA6 PO
[2020-10-03 14:10] VITALS: BP 130/97
--- NOTE | 2020-10-03 14:42 | NUR ---
covid swab collected and sent to lab
--- NOTE | 2020-10-03 14:44 | NUR ---
Patient discharged to home in stable condition. Written and verbal after care instructions given. Patient verbalizes understanding of instruction.
[2020-10-08] MEDS ORDERED: VALS80TA2 PO (16:13)
[2020-10-08] MEDS ORDERED: FURO40TA5 PO (16:13)
[2020-10-08] MEDS ORDERED: CARV3.122 PO (16:13)
== END 2020-10-03 14:44 | disposition home or self-care (01) ==
LOC: ER 13:25
DX: U07.1 COVID-19 (principal); I10 Essential (primary) hypertension; Z87.19 Personal history of other diseases of the digestive system; Z79.899 Other long term (current) drug therapy; Z79.01 Long term (current) use of anticoagulants
CPT/HCPCS: 99283; C9803; U0003

== ENCOUNTER 2020-10-07 13:30 | Inpatient (IN) | payer OTHER ==
[~2020-10-07] VITALS: Ht 182.9 cm; Wt 90.7 kg
[2020-10-07] MEDS: FUROSEMIDE 40 MG/4 ML VIAL IV SCH (02:20)
--- NOTE | 2020-10-07 14:25 | NUR ---
pt rec'd to er c/o sob for 3 weeks sats ra 96 AWAITING EVALUATION BY ER PROVIDER.
[2020-10-07 14:34] LABS: BASOPHILS # (AUTO) 0.1 /CMM (0.0-0.2); BASOPHILS % (AUTO) 0.8 % (0.0-2.0); EOSINOPHILS % (AUTO) 1.4 % (0.0-6.0); HEMATOCRIT 48 % (39-51); HEMOGLOBIN 16.3 g/dL (13.5-17.5); LYMPHOCYTES # (AUTO) 2.3 /CMM (0.8-4.8); LYMPHOCYTES % (AUTO) 25.3 % (20.0-44.0); MEAN CORPUSCULAR HGB CONC 34 g/dl (31.0-36.0); MEAN CORPUSCULAR VOLUME 91 fL (80-96); MONOCYTES % (AUTO) 11.5 % (2.0-12.0); NEUTROPHILS # (AUTO) 5.5 /CMM (1.8-8.9); PLATELET COUNT (AUTO) 150 /CMM (150-450); RED BLOOD CELL COUNT(AUTO) 5.31 MIL/uL (4.5-6.0); WHITE BLOOD COUNT (AUTO) 8.9 K/uL (4.3-11.0)
[2020-10-07 14:43] LABS: CALCIUM, SERUM 8.9 mg/dL (8.5-10.1); POTASSIUM 4.4 mmol/L (3.5-5.1)
[2020-10-07 14:56] LABS: ALBUMIN 3.4 g/dL (3.4-5.0); BILIRUBIN,TOTAL 0.9 mg/dL (0.2-1.0); TOTAL PROTEIN, SERUM 7.5 g/dL (6.4-8.2)
--- NOTE | 2020-10-07 17:10 | NUR ---
PT STILL IN IRREGULAR RHYTHM SO RATE RANGES FROM 70S TO HIGH 110'S. NOTIFIED DR JONES.
[2020-10-07] MEDS ORDERED: FUROSEMIDE 40 MG/4 ML VIAL IV ONE (17:30)
[2020-10-07] MEDS ORDERED: FUROSEMIDE 40 MG/4 ML VIAL ONE (17:56)
[2020-10-07] MEDS ORDERED: DILTIAZEM HCL 50 MG IV ONE (17:58)
[2020-10-07] MEDS ORDERED: DILTIAZEM HCL 50 MG IV IV ONE (18:00)
--- NOTE | 2020-10-07 18:14 | NUR ---
IV STARTED RT HAND 22G LASIX 40 MGIVP
[2020-10-07] MEDS ORDERED: ACETAMINOPHEN 325 MG TABLET PO PRN (18:30)
[2020-10-07] MEDS ORDERED: ENOXAPARIN SODIUM 40 MG/0.4 ML DISP.SYRIN SQ SCH (18:30)
[2020-10-07] MEDS ORDERED: ZOLPIDEM TARTRATE 5 MG TABLET PO PRN (18:30)
[2020-10-07] MEDS ORDERED: Z GUARD REMEDY 2 OZ OINT TP PRN (18:30)
[2020-10-07] MEDS ORDERED: HYDROCODONE/APAP 5/325MG TABLET PO PRN (18:30)
[2020-10-07] MEDS ORDERED: ONDANSETRON HCL/PF 4 MG/2 ML VIAL IVP PRN (18:30)
[2020-10-07] MEDS ORDERED: MAGNESIUM HYDROXIDE 30 ML UDC PO PRN (18:30)
[2020-10-07] MEDS ORDERED: MAG HYDROX/AL HYDROX/SIMETH 30 ML UDC PO PRN (18:30)
--- NOTE | 2020-10-07 20:00 | NUR ---
ASSUMED CARE FOR THIS PT. PT AAOX4, VSS. RESPIRATIONS EVEN AND UNLABORED ON RA W/ NAD NOTED. PT HAS NO COMPLAINTS AT THIS TIME. DENIES PAIN AND SOB. WILL CONTINUE TO MONITOR ACCORDINGLY
[2020-10-07] MEDS ORDERED: ENOXAPARIN SODIUM 40 MG/0.4 ML DISP.SYRIN SQ ONE (21:56)
[2020-10-07] MEDS ORDERED: CARVEDILOL 6.25 MG TABLET ONE (21:57)
[2020-10-07] MEDS: CARVEDILOL 3.125 MG TABLET PO SCH (22:08)
[2020-10-07] MEDS ORDERED: HYDROCODONE/APAP 5/325MG TABLET ONE (22:30)
--- NOTE | 2020-10-08 01:36 | NUR ---
ASSUMED CARE. PT RESTING COMFORTABLE, NO ACUTE DISTRESS NOTED, RESP EVEN AND UNLABORED. PT VERBALIZE SOME RELIEF OF GENRALIZED BODY PAIN. CALL LIGHT WIHTIN REACH. PT REMAINS ON CARDIAC MONITORING, CONTINUOUS POX. WILL CONTINUE TO MONITOR PT CLOSELY.
[2020-10-08] MEDS: FUROSEMIDE 40 MG/4 ML VIAL IV SCH ×3 (02:20→10:00)
--- NOTE | 2020-10-08 02:20 | NUR ---
PT MEDICATED ORDERED.
[2020-10-08] MEDS ORDERED: FUROSEMIDE 40 MG/4 ML VIAL ONE ×3 (02:29→08:11)
--- NOTE | 2020-10-08 05:51 | NUR ---
PT ASLEEP, EASILY AROUSABLE, NO ACUTE DISTRESS NOTED, RESP EVEN AND UNLABORED. CALL LIGHT WITHIN REACH. WILL CONTINUE TO MONITOR PT CLOSELY.
[2020-10-08 06:30] LABS: BASOPHILS % (AUTO) 0.2 % (0.0-2.0); HEMATOCRIT 47 % (39-51); HEMOGLOBIN 16.5 g/dL (13.5-17.5); LYMPHOCYTES # (AUTO) 1.5 /CMM (0.8-4.8); LYMPHOCYTES % (AUTO) 22.3 % (20.0-44.0); MEAN CORPUSCULAR HGB CONC 35 g/dl (31.0-36.0); MEAN CORPUSCULAR VOLUME 93 fL (80-96); MONOCYTES # (AUTO) 0.6 /CMM (0.1-1.30); MONOCYTES % (AUTO) 8.4 % (2.0-12.0); NEUTROPHILS # (AUTO) 4.6 /CMM (1.8-8.9); NEUTROPHILS % (AUTO) 67.1 % (43.0-81.0); PLATELET COUNT (AUTO) 143 /CMM (150-450); RED BLOOD CELL COUNT(AUTO) 5.08 MIL/uL (4.5-6.0); WHITE BLOOD COUNT (AUTO) 6.8 K/uL (4.3-11.0)
[2020-10-08 07:08] LABS: ALANINE AMINOTRANSFERASE 101 U/L (12-78); ALBUMIN 3.3 g/dL (3.4-5.0); ALKALINE PHOSPHATASE 70 U/L (46-116); ASPARTATE AMINOTRANSFERASE 50 U/L (15-37); BILIRUBIN,TOTAL 1.5 mg/dL (0.2-1.0); CARBON DIOXIDE 30 mmol/L (21-32); CHLORIDE 100 mmol/L (98-107); CREATININE 1.2 mg/dL (0.6-1.3); GLUCOSE 108 mg/dL (74-106); MAGNESIUM 1.8 mg/dL (1.8-2.4); PHOSPHORUS 3.2 mg/dL (2.5-4.9); POTASSIUM 3.6 mmol/L (3.5-5.1); SODIUM SERUM 138 mmol/L (136-145); TOTAL PROTEIN, SERUM 7.2 g/dL (6.4-8.2); UREA NITROGEN, BLOOD 17 mg/dL (7-18)
--- NOTE | 2020-10-08 07:13 | NUR ---
REPORT GIVEN TO AM SHIFT MARISELA NGUYEN FOR CONTINUITY OF CARE.
[2020-10-08] MEDS ORDERED: PANTOPRAZOLE 40 MG TABLET.DR PO SCH ×2 (07:30→07:52)
[2020-10-08 08:06] LABS: CHOLESTEROL 159 mg/dL (<200); HDL CHOLESTEROL 36 mg/dL (40-60); LDL 104 mg/dL (0-99); THYROID STIMULATING HORMONE < 0.007 uIU/mL (0.358-3.74); TRIGLYCERIDES 115 mg/dL (30-150)
[2020-10-08] MEDS ORDERED: PANTOPRAZOLE 40 MG TABLET.DR PO ONE (08:11)
[2020-10-08] MEDS ORDERED: HYDROCODONE/APAP 5/325MG TABLET ONE (08:11)
[2020-10-08] MEDS ORDERED: CARVEDILOL 6.25 MG TABLET ONE (08:11)
[2020-10-08] MEDS ORDERED: VALSARTAN 80 MG TABLET ONE (08:47)
[2020-10-08] MEDS: CARVEDILOL 3.125 MG TABLET PO SCH (08:51)
[2020-10-08] MEDS ORDERED: VALSARTAN 80 MG TABLET PO SCH (09:00)
[2020-10-08] MEDS ORDERED: FUROSEMIDE 40 MG/4 ML VIAL IV SCH (09:00)
[2020-10-08] MEDS ORDERED: FUROSEMIDE 40 MG TABLET PO SCH (09:00)
--- NOTE | 2020-10-08 10:49 | NUR ---
RT NOTE Assessed on room air per MD orders. Spo2 96% on room air with no signs of SOB.
--- NOTE | 2020-10-08 16:04 | NUR ---
PATIENT A/OX4, BREATHING EVEN AND UNLABORED, NO SOB NOTED. AMBULATORY WITH SPO2 ON 96-98% ON ROOM AIR.
[2020-10-08] MEDS ORDERED: CARV3.122 PO (16:13)
[2020-10-08] MEDS ORDERED: VALS80TA2 PO (16:13)
[2020-10-08] MEDS ORDERED: FURO40TA5 PO (16:13)
[2020-10-08 17:04] VITALS: BP 137/68
--- NOTE | 2020-10-08 17:04 | NUR ---
Patient a/ox4, breathing even and unlabored, no sob noted. Ambulatory with steady gait. IV removed. Catheter intact and site benign. Pressure and 4x4 applied to site. No bleeding noted.Patient discharged to home in stable condition. Written and verbal after care instructions given. Patient verbalizes understanding of instruction.
[2020-10-08] MEDS ORDERED: ENOXAPARIN SODIUM 40 MG/0.4 ML DISP.SYRIN SQ SCH (21:00)
== END 2020-10-08 17:00 | disposition home or self-care (01) | DRG 194 ==
LOC: ER 14:15 → TRANSITION 22:57 → OBSVTOIN 22:57 → UNDOADMOB 22:57 → INTOOBSV 22:57 → UNDODISIN 10-08 17:00 → TRANSITION 10-08 17:05
PROVIDERS: ADMIT Student in an Organized Health Care Education/Training Program; ATTEND Student in an Organized Health Care Education/Training Program
DX: I11.0 Hypertensive heart disease with heart failure (principal); I42.6 Alcoholic cardiomyopathy; I48.91 Unspecified atrial fibrillation; U07.1 COVID-19; K70.30 Alcoholic cirrhosis of liver without ascites; Z79.01 Long term (current) use of anticoagulants; Z87.891 Personal history of nicotine dependence; Z79.899 Other long term (current) drug therapy; D68.59 Other primary thrombophilia; R74.01 Elevation of levels of liver transaminase levels; G47.33 Obstructive sleep apnea (adult) (pediatric); E44.1 Mild protein-calorie malnutrition; D69.6 Thrombocytopenia, unspecified; E66.9 Obesity, unspecified; I50.43 Acute on chronic combined systolic (congestive) and diastolic (congestive) heart failure
CPT/HCPCS: 36415; 71045-TC; 80053-TC; 80061-TC; 82140-TC; 83735-TC; 83880; 84100-TC; 84443-TC; 84484-TC; 85025-TC; 85378-TC; 85610-TC; 85730-TC; 87081-TC; 93307-TC; G0378; J1650; J1940; J3490

== ENCOUNTER 2025-10-03 07:59 | Emergency (ER) | payer MEDICAID, OTHER ==
[~2025-10-03] VITALS: Ht 182.9 cm; Wt 111.1 kg
[~2025-10-03 07:59] MED LIST changes: +CARV3.122 PO; -DILT-3 PO; +FURO40TA5 PO; -LOSA25TA27 PO; -METH5TAB6 PO; -SPIR25TA6 PO; +VALS80TA2 PO
[2025-10-03 08:10] VITALS: BP 155/91; TEMP 98.2; O2SAT 98
[2025-10-03] MEDS ORDERED: FLUT16SP16 BNOSTRILS (08:20)
[2025-10-03] MEDS ORDERED: GUAI10LI12 PO (08:20)
[2025-10-03] MEDS ORDERED: BENZ-13 PO (08:20)
== END 2025-10-03 08:39 | disposition home or self-care (01) ==
LOC: ER 08:09
DX: J06.9 Acute upper respiratory infection, unspecified (principal); B97.89 Other viral agents as the cause of diseases classified elsewhere; I11.0 Hypertensive heart disease with heart failure; I48.91 Unspecified atrial fibrillation; K70.30 Alcoholic cirrhosis of liver without ascites; Z79.899 Other long term (current) drug therapy
CPT/HCPCS: 71045-TC